=== PATIENT | female | born 2000 | race Hispanic/Latino ===

== ENCOUNTER 2018-04-10 16:00 | Emergency (ER) | payer MEDICAID, OTHER ==
[2018-04-10 16:17] LABS: Bilirubin Negative (Negative); Blood, Urine Negative (Negative); Clarity CLEAR (Clear); Glucose, Urine (Dipstick) Negative (Negative); Leukocyte Small (Negative); Nitrite Negative (Negative); Protein, Urine (Dipstick) Trace mg/dL (Neg-Trace); Specific Gravity, Urine 1.025 (1.002-1.036); pH, Urine 8.5 (5.0-9.0)
[2018-04-10 16:18] LABS: Pregnancy Test - Urine (BHCG) Negative (Negative); Specific Gravity 1.025 (1.002-1.036)
[2018-04-10 16:19] LABS: Pregu Control Background? CLEAR/WHITE (CLR/WHITE); Pregu Control Bar Appear? YES (CONTROL BAR)
[2018-04-10 16:20] LABS: Bacteria/HPF 1+ HPF (None Seen); Hyaline Casts/LPF 0-3 HYALINE CAST LPF (0-3 Hyaline); Pathc Cast-AUWi Flag 0.87 (0-2.49); RBC/HPF 0-3 HPF (0-3); WBC/HPF 0-3 HPF (0-3)
[2018-04-10 18:32] LABS: #Basophils 0.1 thou/uL (0.0-0.2); #Eosinphils 0.2 thou/uL (0.0-0.7); #Lymphocytes 2.5 thou/uL (1.20-3.40); #Monocytes 0.6 thou/uL (0.11-0.59); #Neutrophils 6.5 thou/uL (1.40-6.50); %Basophils 0.9 % (0.0-1.0); %Eosinophils 2.4 % (0.0-10.0); %Lymphocytes 25.5 % (28.0-48.0); %Monocytes 6.3 % (0.0-4.0); Hemoglobin 13.5 g/dL (12.0-16.0); Mean Corpuscular HGB CONC 34.2 g/dL (32.0-36.0); Mean Corpuscular Hemoglobin 32.2 pg (25.0-35.0); Mean Corpuscular Volume 94.2 fL (78.0-98.0); Platelet Count 289 thou/uL (130-400); RBC Distribution Width 10.9 % (11.5-14.5)
[2018-04-10 18:51] LABS: ALT (SGPT) 15 U/L (8-55); AST (SGOT) 17 U/L (5-34); Albumin 4.4 g/dL (3.5-5.0); Alkaline Phosphatase 77 U/L (40-150); Anion Gap 12 mmol/L (10-20); BUN (Urea Nitrogen) 11 mg/dL (7.0-18.7); Bilirubin, Total 0.3 mg/dL (0.2-1.2); Calc. Creatinine Clearance 0 mL/min (70-130); Carbon Dioxide 22 mmol/L (22-29); Chloride 107 mmol/L (98-107); Estimated GFR-MDRD Greater than 90; Globulin 2.7 g/dL (2.4-3.5); Glucose 72 mg/dL (70-105); Lipase 19 U/L (8-78); Potassium 3.8 mmol/L (3.5-5.1); Protein, Total 7.1 g/dL (6.0-8.3); Sodium 137 mmol/L (136-145)
[2018-04-10] MEDS ORDERED: Lidocaine 1% PF 5 ML VIAL ONE (19:32)
[2018-04-10] MEDS ORDERED: Azithromycin 250 MG TAB ONE (19:32)
[2018-04-10] MEDS ORDERED: cefTRIAXone\\ROCEPHIN 250 MG VIAL ONE ×2 (19:32→19:36)
--- NOTE | 2018-04-10 19:32 | ULT ---
PELVIC ULTRASOUND: 04/10/18 Transabdominal and endovaginal ultrasound of pelvis performed. INDICATIONS: 18-year-old female with pelvic pain. The uterus has a normal size and appearance. The endometrial stripe is thickened measured at 1.6 cm. Both ovaries are identified and appear unremarkable. Color doppler with spectral analysis demonstrate s blood flow to both ovaries. Free fluid is seen in the cul-de-sac. IMPRESSION: 1. Thickened endometrium. 2. Free fluid in the cul-de-sac. Ectopic is not excluded. Correlate with serum HCG lev el. POS: [facility]
== END 2018-04-10 20:05 | disposition home or self-care (01) ==
LOC: ERS 16:00
DX: R10.2 Pelvic and perineal pain (principal)
CPT/HCPCS: 76856; 80053; 81003; 81015; 81025; 83690; 85025; 87480; 87491; 87510; 87591; 87660; 96372; J0696; J2001

== ENCOUNTER 2018-08-23 08:13 | Outpatient (CLI) | payer OTHER ==
--- NOTE | 2018-08-23 09:36 | ULT ---
FObstetrical ultrasound: 08/23/2018 COMPARISON: None HISTORY: 18-year-old female undergoing evaluation of size, dates, and anatomy TECHNIQUE: Multiplanar grayscale sonographic imaging of the gravid uterus obtained. FINDINGS: Single live intrauterine gestation present demonstrating a vertex presentation. Cervical le ngth is estimated at 2.9 cm. Placenta is located in an anterior fundal position, with no evidence for previa or abruption. The stomach, kidneys, and heart appear grossly unremarkable. heart rate is 140 bpm. Umbil ical cord insertion, urinary bladder, umbilical cord, nose and lips, spine, and intracranial contents appear grossly unremarkable. Amniotic fluid index is 11.4 cm. biometry: Biparietal diameter is 5.1 cm, correlating with a 21 week 3 day gestation Head circumference is 20.2 cm correlating with a 22 week 3 day gestation Abdominal circumference is 17.0 cm correlating with a 22 weeks 0 day gestation Femur length is 3.8 cm correlating with a 22 week 2 day gestation Average age based on ultrasound is 22 weeks 1 days with estimated date of delivery on 12/26/2018. Estimated weight is 475 g +/- 69 g. Weight percentile based on last menstrual period is 17th pe rcentile. Estimated date of delivery is 12/26/2018. IMPRESSION: Single intrauterine gestation as detailed above.
== END 2018-08-23 08:14 | disposition home or self-care (01) ==
LOC: BICULT 08:13
PROVIDERS: ATTEND Family Medicine
DX: Z34.02 Encounter for supervision of normal first pregnancy, second trimester (principal); Z3A.22 22 weeks gestation of pregnancy
CPT/HCPCS: 76805

== ENCOUNTER 2018-12-12 19:20 | Inpatient (IN) | payer OTHER ==
[2018-12-12 19:47] VITALS: BMI 20.7
[2018-12-12 20:12] LABS: Hemoglobin 12.9 g/dL (12.0-16.0); Mean Corpuscular HGB CONC 35.5 g/dL (32.0-36.0); Mean Corpuscular Hemoglobin 31.8 pg (25.0-35.0); Mean Corpuscular Volume 89.4 fL (78.0-98.0); Mean Platelet Volume 6.8 fL (7.4-10.4); Platelet Count 312 thou/uL (130-400); RBC Distribution Width 11.5 % (11.5-14.5); Red Blood Cell (RBC) Count 4.05 mill/uL (4.00-5.20); White Blood Cell (WBC) Count 12.3 thou/uL (4.8-10.8)
[2018-12-12] MEDS ORDERED: Fentanyl 4 mcg/Bup 0.1% Cadd 100 ML ONE (20:15)
[2018-12-12] MEDS ORDERED: Acetaminophen 325 MG TAB PO PRN (20:47)
[2018-12-12] MEDS ORDERED: Promethazine HCl 25 MG/ML VIAL IM PRN ×3 (20:47→23:36)
[2018-12-12] MEDS ORDERED: Naloxone HCl 0.4 mg/ml Vial IVP PRN ×2 (20:47)
[2018-12-12] MEDS ORDERED: Ondansetron PF 4 MG/2 ML Vial IVP PRN ×3 (20:47→23:36)
[2018-12-12] MEDS ORDERED: Lactated Ringer's 500 ML IV PRN (20:47)
[2018-12-12] MEDS ORDERED: diphenhydrAMINE 50 MG/ML VIAL IVP PRN (20:47)
[2018-12-12] MEDS ORDERED: ePHEDrine/0.9% NaCl/PF SYRINGE 50 mg/10 ml SLOW IVP PRN (20:47)
[2018-12-12 20:53] LABS: Syphilis Antibody Nonreactive (Nonreactive); Syphilis Antibody Index 0.02 S/CO (<1.00 Non-Reactive)
[2018-12-12] MEDS ORDERED: Communication Order-Pharmacy FS SCH (21:00)
[2018-12-12] MEDS ORDERED: Fentanyl 4 mcg/Bupivacaine 0.1% Cassette 100 ML EPIDURAL SCH (21:00)
[2018-12-12] MEDS ORDERED: NS / Oxytocin 40 units/1000ml 1,000 ML ONE (21:01)
[2018-12-12] MEDS ORDERED: Ibuprofen 800 MG TAB PO PRN (21:16)
[2018-12-12] MEDS ORDERED: HYDROcodone/Acetaminophen 5/325 mg Tablet PO PRN ×3 (21:16→23:36)
[2018-12-12] MEDS ORDERED: hydrALAZINE 20 MG/ML VIAL SLOW IVP PRN ×2 (21:16→23:36)
[2018-12-12] MEDS ORDERED: NS / Oxytocin 40 units/1000ml 1,000 ML IV PRN (21:16)
[2018-12-12] MEDS ORDERED: Lidocaine 1% (PF) 30 ML VIAL SC PRN (21:16)
[2018-12-12] MEDS ORDERED: Diphenoxylate HCl/Atropine Tablet PO PRN (21:16)
[2018-12-12 22:26] LABS: Syphilis Antibody Nonreactive (Nonreactive); Syphilis Antibody Index 0.02 S/CO (<1.00 Non-Reactive)
[2018-12-12 22:37] LABS: HBSAg Index 0.27 S/CO (0-0.99); Hep B Surf Ag Non-Reactive S/CO (NonReactive)
[2018-12-12 22:38] LABS: HBSAg Index 0.48 S/CO (0-0.99); Hep B Surf Ag Non-Reactive S/CO (NonReactive)
[2018-12-12] MEDS ORDERED: Lactated Ringer's 1,000 ML IV SCH (23:15)
[2018-12-12] MEDS ORDERED: Benzocaine-Menthol 82.5 ML CAN TOP PRN (23:36)
[2018-12-12] MEDS ORDERED: Lanolin Ointment 7 GM TUBE TOP PRN (23:36)
[2018-12-12] MEDS ORDERED: diphenhydrAMINE 25 MG CAP PO PRN (23:36)
[2018-12-12] MEDS ORDERED: Bisacodyl 10 MG SUPP PR PRN (23:36)
[2018-12-12] MEDS ORDERED: Preparation H Ointment 28 GM TUBE PR PRN (23:36)
[2018-12-12] MEDS ORDERED: Milk Of Magnesia 30 ML UDCUP PO PRN (23:36)
[2018-12-12] MEDS ORDERED: NS / Oxytocin 40 units/1000ml 1,000 ML IV SCH (23:36)
[2018-12-13] MEDS: Ibuprofen 800 MG TAB PO SCH ×3 (05:43→21:50)
[2018-12-13 05:58] LABS: Mean Corpuscular HGB CONC 35.6 g/dL (32.0-36.0); Mean Corpuscular Volume 89.8 fL (78.0-98.0); Platelet Count 261 thou/uL (130-400); RBC Distribution Width 11.6 % (11.5-14.5); Red Blood Cell (RBC) Count 3.45 mill/uL (4.00-5.20); White Blood Cell (WBC) Count 14.6 thou/uL (4.8-10.8)
[2018-12-13] MEDS ORDERED: Adacel (T-DAP) 0.5 ML SYRINGE IM ONE (09:00)
[2018-12-13] MEDS: Ferrous Sulfate 325 MG TAB PO SCH ×2 (09:26→18:31)
[2018-12-13] MEDS: Prenatal Vitamin 1 TAB PO SCH (09:27)
[2018-12-13] MEDS: Docusate Calcium (SURFAK) 240 MG CAP PO SCH ×2 (09:27→21:50)
[2018-12-14] MEDS: Ibuprofen 800 MG TAB PO SCH (05:56)
[2018-12-14 08:27] VITALS: BP 116/57; TEMP 97.8
[2018-12-14] MEDS: Prenatal Vitamin 1 TAB PO SCH (08:33)
[2018-12-14] MEDS: Docusate Calcium (SURFAK) 240 MG CAP PO SCH (08:33)
[2018-12-14] MEDS: Ferrous Sulfate 325 MG TAB PO SCH (08:34)
== END 2018-12-14 12:46 | disposition home or self-care (01) | DRG 807 ==
LOC: L&D/OP 19:20 → L&D 20:57 → 3SW 12-13 00:11
PROVIDERS: ADMIT Family Medicine; ATTEND Family Medicine
PROC: 10E0XZZ Delivery of Products of Conception, External Approach (ICD-10-PCS; principal; 2018-12-12)
DX: O71.82 Other specified trauma to perineum and vulva (principal); Z37.0 Single live birth; Z3A.38 38 weeks gestation of pregnancy
CPT/HCPCS: 36415; 85027; 86780; 86850; 86900; 86901; 87340; 99285

== ENCOUNTER 2019-05-23 05:08 | Emergency (ER) | payer OTHER ==
[2019-05-23 05:33] LABS: Bilirubin Negative (Negative); Blood, Urine Negative (Negative); Clarity Clear (Clear); Glucose, Urine (Dipstick) Normal (Negative); Leukocyte Negative Leu/uL (Negative); Nitrite Negative (Negative); Protein, Urine (Dipstick) Negative (Neg-Trace); Urobilinogen Normal mg/dL (Less than 2)
[2019-05-23 05:36] LABS: Pregnancy Test - Urine (BHCG) Negative (Negative); Pregu Control Background? CLEAR/WHITE (CLR/WHITE); Pregu Control Bar Appear? YES (CONTROL BAR); Specific Gravity 1.033 (1.002-1.036)
[2019-05-23 05:48] LABS: #Basophils 0.1 thou/uL (0.0-0.2); #Eosinphils 0.3 thou/uL (0.0-0.7); #Lymphocytes 1.9 thou/uL (1.20-3.40); #Monocytes 0.4 thou/uL (0.11-0.59); #Neutrophils 5.5 thou/uL (1.40-6.50); %Basophils 1.1 % (0.0-1.0); %Eosinophils 3.1 % (0.0-10.0); %Lymphocytes 23.3 % (21.0-51.0); %Monocytes 4.9 % (0.0-10.0); %Neutrophils 67.6 % (42.0-75.0); Hemoglobin 13.4 g/dL (12.0-16.0); Mean Corpuscular HGB CONC 34.4 g/dL (32.0-36.0); Mean Corpuscular Hemoglobin 31.2 pg (27.0-31.0); Mean Corpuscular Volume 90.6 fL (78.0-98.0); Mean Platelet Volume 6.8 fL (7.4-10.4); Platelet Count 333 thou/uL (130-400); RBC Distribution Width 10.8 % (11.5-14.5); Red Blood Cell (RBC) Count 4.29 mill/uL (4.20-5.40); White Blood Cell (WBC) Count 8.2 thou/uL (4.8-10.8)
[2019-05-23] MEDS ORDERED: Ondansetron ODT 4 MG TAB ONE (06:15)
[2019-05-23 06:27] LABS: ALT (SGPT) 13 U/L (8-55); AST (SGOT) 14 U/L (5-34); Albumin 4.3 g/dL (3.5-5.0); Alkaline Phosphatase 80 U/L (40-110); Anion Gap 12 mmol/L (10-20); BUN (Urea Nitrogen) 12 mg/dL (7.0-18.7); Bilirubin, Total 0.2 mg/dL (0.2-1.2); Calc. Creatinine Clearance 0 mL/min (70-130); Carbon Dioxide 25 mmol/L (22-29); Chloride 106 mmol/L (98-107); Estimated GFR-MDRD Greater than 90; Globulin 2.6 g/dL (2.4-3.5); Glucose 117 mg/dL (70-105); Lipase 16 U/L (8-78); Potassium 3.6 mmol/L (3.5-5.1); Protein, Total 6.9 g/dL (6.0-8.3); Sodium 139 mmol/L (136-145)
[2019-05-23] MEDS ORDERED: Ketorolac Tromethamine 30 MG/ML VIAL ONE (07:43)
[2019-05-23] MEDS ORDERED: Morphine 4 MG/ML VIAL ONE ×2 (07:43→09:30)
--- NOTE | 2019-05-23 09:39 | ULT ---
RIGHT UPPER QUADRANT ULTRASOUND: INDICATIONS: Right upper quadrant abdominal pain. FINDINGS: There is cholelithiasis with no report of a sonographic Goel sign. The gallbladder wall thickness i s normal appearing. No pericholecystic edema is noted. The liver is normal appearing. The visualized aspects of the pancreas are unremarkable appearing. The common bile duct is dilated, measuring 8 mm. The right kidney measures 9.3 x 4.1 x 3.8 cm. There is no focal ring lesion or hydronephrosis. IMPRESSION: 1. Cholelithiasis. 2. Dilatation of the common bile duct without anjelica intrahepatic biliary ductal dilatation. A distal obstructing process cannot be entirely excluded. Follow-up magnetic resonance cholangiopancreatograph y may be helpful for further characterization. POS: OFF
== END 2019-05-23 10:05 | disposition home or self-care (01) ==
LOC: ERS 05:08
DX: K80.20 Calculus of gallbladder without cholecystitis without obstruction (principal); F31.9 Bipolar disorder, unspecified; F41.9 Anxiety disorder, unspecified; F17.210 Nicotine dependence, cigarettes, uncomplicated
CPT/HCPCS: 36415; 76705; 80053; 81003; 81025; 83690; 85025; 96361; 96374; 96375; 96376; J1885; J2270; Q0162

== ENCOUNTER 2023-06-04 19:39 | Emergency (ER) | payer MEDICAID, SELFPAY ==
[2023-06-04 20:59] LABS: SARS-CoV-2 NAA Rapid Test DETECTED (NotDetected)
== END 2023-06-04 20:18 | disposition home or self-care (01) ==
LOC: ERS 19:39
DX: U07.1 COVID-19 (principal); J06.9 Acute upper respiratory infection, unspecified; F17.210 Nicotine dependence, cigarettes, uncomplicated
CPT/HCPCS: 99284